=== PATIENT | male | born 1980 | race African-American/Black ===

== ENCOUNTER 2017-02-02 22:00 | Emergency (ER) | payer OTHER ==
[~2017-02-02 22:00] MED LIST: *DENIES
== END 2017-02-03 01:17 | disposition home or self-care (01) ==
LOC: ER 22:00
PROC: 2W3DX1Z Immobilization of Left Lower Arm using Splint (ICD-10-PCS; principal; 2017-02-02)
DX: S60.012A Contusion of left thumb without damage to nail, initial encounter (principal); X58.XXXA Exposure to other specified factors, initial encounter
CPT/HCPCS: 73130-LT; 99283